=== PATIENT | female | born 1950 | race Caucasian/White ===

== ENCOUNTER 2016-05-25 06:25 | Day surgery (SDC) | payer MEDICARE, OTHER ==
[2016-05-23 13:41] VITALS: BP 140/68
[2016-05-23 14:33] LABS: HEMOGLOBIN 15.7 g/dL (11.7-16.4)
[2016-05-23 14:38] LABS: ASPARTATE AMINO TRANSFERASE 44 U/L (15-37); BLOOD UREA NITROGEN 22 mg/dL (7-18)
[~2016-05-25] VITALS: Ht 175.3 cm; Wt 59.0 kg
[~2016-05-25 06:25] MED LIST: ACYC-114 PO; ALEN70TA5 PO; AMOX-291 PO; ASPI-496 PO; ATEN25TA PO; AZEL137S4 NAS; CALC1CAP8 PO; CETI-237 PO; CETI10CA PO; CYAN10005 PO; ESTR42.53 VG; FLAX1CAP6 PEG; FLUT9.9S NS; GARL1TAB PO; LACT1CAP37 PO; LISI-167 PO; METR45CR TP; MONT10TA9 PO; MULT-230 PO; MULT-658 PO; PROP1DRO EACHEYE; RANI150T8 PO; SCOP1PAT TD; SIMV10TA3 PO; SODI30SP NS; SOLI10TA PO; THYR60TA PO; TRIA340. TP; VENL37.58 PO; VIT1CAPS11 PO
[2016-05-25] MEDS ORDERED: SODIUM CHLORIDE 0.9% 1,000 ML IV SCH ×2 (06:36→07:00)
[2016-05-25] MEDS ORDERED: ACETAMINOPHEN 325 MG TABLET PO PRN ×2 (07:00→10:30)
[2016-05-25] MEDS ORDERED: ZOLPIDEM 5MG TABLET PO PRN (07:00)
[2016-05-25] MEDS ORDERED: MIDAZOLAM 1 MG/ML, 5ML ONE (07:19)
[2016-05-25] MEDS ORDERED: FENTANYL PF 250 MCG/5ML ONE (07:19)
[2016-05-25] MEDS ORDERED: ONDANSETRON 2MG/ML, 2ML ONE (07:55)
[2016-05-25] MEDS ORDERED: PROPOFOL 10 MG/ML, 20ML ONE (07:55)
[2016-05-25] MEDS ORDERED: DEXAMETHASONE 4 MG/ML, 1ML ONE (07:55)
[2016-05-25] MEDS ORDERED: SUCCINYLCHOLINE 20 MG/ML, 10ML ONE (07:55)
[2016-05-25] MEDS ORDERED: LIDOCAINE 2%, 20ML ONE (08:04)
[2016-05-25] MEDS ORDERED: HEPARIN 1,000 UNITS/ML, 10ML ONE (08:19)
[2016-05-25] MEDS ORDERED: PROTAMINE SULFATE 10 MG/ML, 5ML ONE (08:19)
[2016-05-25] MEDS ORDERED: ADENOSINE 6 MG/2 ML ONE (08:48)
[2016-05-25] MEDS ORDERED: ISOPROTERENOL 0.2MG/ML, 5ML ONE (08:51)
[2016-05-25] MEDS ORDERED: HYDROmorphone 1 MG/ML, 1ML IV PRN (10:30)
[2016-05-25] MEDS ORDERED: ONDANSETRON 2MG/ML, 2ML IVPush PRN (10:30)
[2016-05-25] MEDS ORDERED: MIDAZOLAM 1 MG/ML, 2ML IV PRN (10:30)
[2016-05-25] MEDS ORDERED: MEPERIDINE/PF 25MG/0.5ML IVPush PRN (10:30)
[2016-05-25] MEDS ORDERED: FENTANYL PF 100 MCG/2ML IV PRN (10:30)
[2016-05-25] MEDS ORDERED: OXYcodone 5 MG/5 ML ORAL.SOL UDC PO PRN (10:30)
== END 2016-05-25 15:10 | disposition home or self-care (01) ==
LOC: CACL 06:25
PROVIDERS: ATTEND Internal Medicine Cardiovascular Disease
DX: I47.1 Supraventricular tachycardia (principal); I48.92 Unspecified atrial flutter; I10 Essential (primary) hypertension; E78.5 Hyperlipidemia, unspecified; R06.02 Shortness of breath
CPT/HCPCS: 36415; 71020; 80053; 85025; 85610; 85730; 93005; 93312; 93321; 93325; J0153; J0330; J1100; J1644; J2250; J2405; J2704; J2720; J3010; J3490

== ENCOUNTER → 2016-09-19 | Outpatient (CLI) | payer MEDICARE, OTHER | END | disposition home or self-care (01) | LOC: RAD 14:42 | PROVIDERS: ATTEND Internal Medicine | DX: M50.322 Other cervical disc degeneration at C5-C6 level (principal); M50.323 Other cervical disc degeneration at C6-C7 level; M48.02 Spinal stenosis, cervical region; M25.78 Osteophyte, vertebrae | CPT/HCPCS: 72040 ==

== ENCOUNTER → 2017-04-24 | Outpatient (CLI) | payer MEDICARE, OTHER ==
[~2017-04-24] MED LIST changes: -GARL1TAB PO; +GARL1TAB2 PO; +OMNIPAQUE 350 MG/ML, 100ML BOTTLE ONE; -PROP1DRO EACHEYE; +PROP1DRO6 EACHEYE; -SOLI10TA PO; +SOLI10TA2 PO
== END | disposition home or self-care (01) ==
LOC: CFH 12:09
PROVIDERS: ATTEND Internal Medicine
DX: R10.32 Left lower quadrant pain (principal); K57.90 Diverticulosis of intestine, part unspecified, without perforation or abscess without bleeding
CPT/HCPCS: 74177; Q9967

== ENCOUNTER → 2018-04-09 | Outpatient (CLI) | payer MEDICARE, OTHER ==
[~2018-04-09] MED LIST changes: -ALEN70TA5 PO; +ALEN70TA6 PO; -OMNIPAQUE 350 MG/ML, 100ML BOTTLE ONE; +RANI150T23 PO; -RANI150T8 PO; -SCOP1PAT TD; +SCOP1PAT11 TD
== END | disposition home or self-care (01) ==
LOC: CFH 09:47
PROVIDERS: ATTEND Internal Medicine
DX: I35.8 Other nonrheumatic aortic valve disorders (principal); I48.91 Unspecified atrial fibrillation; I10 Essential (primary) hypertension; E78.5 Hyperlipidemia, unspecified
CPT/HCPCS: 78452; 93017; 93306; A9502

== ENCOUNTER → 2020-02-06 | Outpatient (CLI) | payer MEDICARE, OTHER ==
[~2020-02-06] MED LIST changes: -ALEN70TA6 PO; +ALEN70TA66 PO; +CYAN-27 PO; -CYAN10005 PO; -MONT10TA9 PO; +MONT10TA96 PO; -MULT-230 PO; +MULT-806 PO; +RANI-467 PO; -RANI150T23 PO; +SIMV10TA18 PO; -SIMV10TA3 PO
== END | disposition home or self-care (01) ==
LOC: CFH 10:58
PROVIDERS: ATTEND Family Medicine
DX: M85.80 Other specified disorders of bone density and structure, unspecified site (principal); N95.8 Other specified menopausal and perimenopausal disorders
CPT/HCPCS: 77080